=== PATIENT | female | born 1950 | race Caucasian/White ===

== ENCOUNTER → 2016-04-15 | Outpatient (CLI) | payer OTHER ==
--- NOTE | 2016-04-15 17:13 | DX ---
Chest, PA and lateral History: J 06.9, upper respiratory infection, cough, on biologic age in or rheumatoid arthritis. Findings: Compare October 2015, May 2012, and May 2011. The lungs are clear, and there are no pleural effusions. Heart size is normal. No masses are found. Chronic abnormalities of left shoulder are unchanged. Moderate thoracic scoliosis and obesity are unchanged. Impression: Negative for pneumonia.
== END ==
LOC: CIMAGING 16:33
PROVIDERS: ATTEND Internal Medicine
DX: R05 Cough (principal); M06.9 Rheumatoid arthritis, unspecified; Z79.899 Other long term (current) drug therapy
CPT/HCPCS: 71020-PO

== ENCOUNTER 2016-05-06 15:23 | Emergency (ER) | payer OTHER ==
[2016-05-06 16:13] VITALS: BP 159/80; PULSE 82; RESP 20; TEMP 97.7; O2SAT 97
--- NOTE | 2016-05-06 16:19 | UCPHY ---
H & P Time Seen by Provider: 05/06/16 16:19 Patient Type: New HPI/ROS: CHIEF COMPLAINT: right radial wrist pain HISTORY OF PRESENT ILLNESS: 65-year-old female history of rheumatoid arthritis , right-hand dominant, states that 1 week ago as she was having difficulty opening up a jaw are, she slammed down frustration and felt immediate pain in her right radial wrist and right 1st metacarpal. Pain is reproducible with range of motion. She notes soft tissue swelling as well. No paresthesia. PHYSICAL EXAM (Prior to examination, patient consented to physical exam, hands were washed and my usual and customary physical exam procedures followed) 1) GENERAL: Well-developed, well-nourished, alert and oriented. Appears to be in no acute distress. 2) HEAD: Normocephalic 3) HEENT: Pupils equal, round, reactive to light bilaterally. 4) LUNGS: Breathing comfortably. 5) MUSCULOSKELETAL: Soft compartments. Ecchymotic discoloration thenar eminence tender to palpation 1st metacarpal and snuffbox 6) SKIN: intact. Mild ecchymosis 7) VASCULAR: pulses and cap refill present are brisk 8) NEUROLOGIC: Radial, ulnar, median nerve function intact with no deficits appreciated on exam DIFFERENTIAL DIAGNOSIS: in no particular order including but not limited to fracture, sprain, compartment syndrome Xray of the right wrist interpreted by myself: no definitive acute osseous abnormality Procedure: Splint A Velcro thumb spica splint was applied by ER military technician. After application of the splint I returned and re-examined the patient. The splint was adequately immobilizing the joint and distal to the splint the patient's circulation and sensation were intact. Patient shows no signs of compartment syndrome. Was given orthopedic precautions. Smoking Status: Former smoker Constitutional: Initial Vital Signs Temperature (C) 36.5 C 05/06/16 16:07 Heart Rate 82 05/06/16 16:07 Respiratory Rate 20 05/06/16 16:07 Blood Pressure 159/80 H 05/06/16 16:07 O2 Sat (%) 97 05/06/16 16:07 O2 Delivery Mode Room Air Allergies/Adverse Reactions: codeine [Codeine] Allergy (Verified 05/06/16 16:14) nausea infliximab [From Remicade] Allergy (Verified 05/06/16 16:14) methotrexate [Methotrexate] Allergy (Verified 05/06/16 16:14) Penicillins Allergy (Verified 05/06/16 16:14) Home Medications: Medication Instructions Recorded LORazepam [Ativan (*)] 1 mg PO HS PRN 06/20/11 Omeprazole [Prilosec 20 mg] 40 mg PO DAILY@18 06/20/11 Triamterene/Hctz 37.5/25 0.5 tab PO DAILY 06/20/11 [Maxzide-25 (*)] Sumatriptan Succinate [Imitrex] 100 mg PO DAILY PRN 10/11/15 metFORMIN HCL [Glucophage 500 mg 500 mg PO BIDMEAL 10/11/15 (*)] Cimzia 05/06/16 oxyCODONE/APAP 5/325 [Percocet 1 tab PO Q6 #10 tab 05/06/16 5/325] MDM/Departure - MDM Procedures: Procedure: Splint A Velcro thumb spica splint was applied by ER military technician. After application of the splint I returned and re-examined the patient. The splint was adequately immobilizing the joint and distal to the splint the patient's circulation and sensation were intact. Patient shows no signs of compartment syndrome. Was given orthopedic precautions. ED Course/Re-evaluation: Re-evaluation with serial exams. She is neurovascularly intact. States that she is able tolerate Percocet without adverse effect/allergic affect. Recommend follow up with Hand surgery. Recommend splinting. Usual and customary orthopedic precautions and instructions provided. She feels comfortable being discharged - Depart Disposition: Home, Routine, Self-Care Clinical Impression: Right hand pain Condition: Good Instructions: Hand Sprain (ED) Additional Instructions: Return to the ER immediately if you experience discoloration, have worsening pain, numbness, tingling, or any other symptoms that concern you. If you received x-rays in the emergency department today, be advised, that ligamentous , tendon, muscular, and other non-bony injury cannot be fully ruled out. Try to keep your affected extremity elevated above the level of your chest, and keep cold packs on the affected area, for the next 48 hours. Prescriptions: oxyCODONE/APAP 325 [Percocet 325] 1 tab PO Q6 #10 tab - PQRS PQRS Measurement: n/a
--- NOTE | 2016-05-06 16:36 | DX ---
Right wrist series 4 views 1620 hours. History: Right wrist pain after punching an object one week ago. Findings: There is no evidence of fracture about the right wrist. Moderate to marked joint space narr owing is noted at the right first carpometacarpal joint with endplate sclerosis, hypertrophic osteoph ytes, and mild proximal subluxation. The remainder of the joint spaces appear to be normal. No fractu res are seen or periosteal thickening. Mild soft tissue swelling is suspected. Impression: 1. No acute osseous abnormality seen right wrist. 2. Degenerative changes first carpometacarpal joint.
== END 2016-05-06 16:55 | disposition home or self-care (01) ==
LOC: CED 15:23
DX: M25.841 Other specified joint disorders, right hand (principal); M25.741 Osteophyte, right hand; M06.9 Rheumatoid arthritis, unspecified
CPT/HCPCS: 73110; G0463; L3807; 99203-PO

== ENCOUNTER → 2016-06-17 | Outpatient (CLI) | payer OTHER | LOC: CIMAGING 16:20 | PROVIDERS: ATTEND Internal Medicine | DX: R05 Cough (principal) | CPT/HCPCS: 71020-PO ==

== ENCOUNTER 2016-06-20 18:53 | Emergency (ER) | payer OTHER ==
[2016-06-20 19:05] VITALS: RESP 18; TEMP 98
[2016-06-20] MEDS ORDERED: IPRATROPIUM/ALBUTEROL 3 ML DEYVIAL IH ONE (19:59)
--- NOTE | 2016-06-20 20:03 | UCPHY ---
H & P Patient Type: Established Chief Complaint Nursing Narrative: sent by Dr. Markham for further work up of SOB/ cough/put on acyclovir for cold sore Time Seen by Provider: 06/20/16 19:38 HPI/ROS: CHIEF COMPLAINT: Cough HISTORY OF PRESENT ILLNESS: The patient is a 65-year-old female with a history of rheumatoid arthritis on Cimzia who comes to the Urgent Care complaining of worsening cough and dyspnea with exertion. She is a patient of Dr. Stuart's and saw him on Friday of this week. At that time she had similar complaints. Her x -ray was negative. He started her on acyclovir for a cold sore. She held off her Cimzia injection this week. She has had a low-grade fever up to 100. She also states that she has had wheezing at night when she lies flat. Her cough is productive of yellow sputum. She denies chest pain. She denies nausea vomiting or GI symptoms. She called Dr. Stuart this afternoon who recommended she come in to get evaluated and repeat x-ray. She classifies her symptoms as moderate. She denies any history of respiratory or cardiac disease. REVIEW OF SYSTEMS: Constitutional: denies: chills, fever, recent illness, recent injury EENTM: denies: blurred vision, double vision, nose congestion Respiratory: See HPI Cardiac: denies: chest pain, irregular heart rate, lightheadedness, palpitations Gastrointestinal/Abdominal: denies: abdominal pain, diarrhea, nausea, vomiting, blood streaked stools Genitourinary: denies: dysuria, frequency, hematuria, pain Musculoskeletal: denies: joint pain, muscle pain Skin: denies: lesions, rash, jaundice, bruising Neurological: denies: headache, numbness, paresthesia, tingling, dizziness, weakness Hematologic/Lymphatic: denies: blood clots, easy bleeding, easy bruising Immunologic/allergic: denies: HIV/AIDS, transplant EXAM: GENERAL: Well-appearing, well-nourished and in no acute distress. HEAD: Atraumatic, normocephalic. EYES: Pupils equal round and reactive to light, extraocular movements intact, sclera anicteric, conjunctiva are normal. ENT: TMs normal, nares patent, oropharynx clear without exudates. Moist mucous membranes. NECK: Normal range of motion, supple without lymphadenopathy or JVD. LUNGS: Right lower lobe rhonchi HEART: Regular rate and rhythm without murmurs, rubs or gallops. ABDOMEN: Soft, nontender, normoactive bowel sounds. No guarding, no rebound. No masses appreciated. BACK: No CVA tenderness, no spinal tenderness, step-offs or deformities EXTREMITIES: Normal range of motion, no pitting or edema. No clubbing or cyanosis. NEUROLOGICAL: Cranial nerves II through XII grossly intact. Normal speech, normal gait. 5/5 strength, normal movement in all extremities, normal sensation PSYCH: Normal mood, normal affect. SKIN: Warm, dry, normal turgor, no visible rashes or lesions. Source: Patient Exam Limitations: No limitations - Personal History Current Tetanus Diphtheria and Acellular Pertussis (TDAP): Yes - Medical/Surgical History Hx Asthma: No Hx Chronic Respiratory Disease: No Hx Diabetes: No Hx Cardiac Disease: No Hx Renal Disease: No Hx Cirrhosis: No Hx Alcoholism: No Hx HIV/AIDS: No Hx Splenectomy or Spleen Trauma: No Other PMH: FM. Rheumatoid Arthritis. /DM 2 - Family History Significant Family History: No pertinent family hx - Social History Smoking Status: Former smoker Alcohol Use: Sober Drug Use: None Constitutional: Initial Vital Signs Temperature (C) 36.6 C 06/20/16 19:01 Heart Rate 81 06/20/16 19:01 Respiratory Rate 18 06/20/16 19:01 Blood Pressure 120/46 L 06/20/16 19:01 O2 Sat (%) 94 06/20/16 19:01 O2 Delivery Mode Room Air Allergies/Adverse Reactions: codeine [Codeine] Allergy (Verified 05/06/16 16:14) nausea infliximab [From Remicade] Allergy (Verified 05/06/16 16:14) methotrexate [Methotrexate] Allergy (Verified 05/06/16 16:14) Penicillins Allergy (Verified 05/06/16 16:14) Home Medications: Medication Instructions Recorded LORazepam [Ativan (*)] 1 mg PO HS PRN 06/20/11 Omeprazole [Prilosec 20 mg] 40 mg PO DAILY@18 06/20/11 Triamterene/Hctz 37.5/25 0.5 tab PO DAILY 06/20/11 [Maxzide-25 (*)] Sumatriptan Succinate [Imitrex] 100 mg PO DAILY PRN 10/11/15 metFORMIN HCL [Glucophage 500 mg 500 mg PO BIDMEAL 10/11/15 (*)] Cimzia 05/06/16 oxyCODONE/APAP 5/325 [Percocet 1 tab PO Q6 #10 tab 05/06/16 5/325] Fluconazole [Diflucan (*)] 150 mg PO ONCE #3 tab 06/20/16 Ondansetron Odt [Zofran Odt 4 mg 4 mg PO Q4 PRN #20 tab 06/20/16 (RX)] levOFLOXACIN [levAQUIN] 750 mg PO DAILY #10 tab 06/20/16 Medical Decision Making - Diagnostics EKG Interpretation: An EKG obtained and was read and documented in trace view. Please see trace view for full reading and report. Sinus rhythm, no QT prolongation Imaging: X-ray: chest x-ray was obtained. I viewed the images myself on the PACS system. My interpretation of the images is: Bronchitis. The radiologist interpretation is bronchitis. ED Course/Re-evaluation: 9:50 p.m. the patient is well appearing. She is saturating 96% on room air. She does have coarse breath sounds in the right lower lobe and bronchitis on x- ray. Her x-ray does not look worse than previous. I will start her on antibiotics based on her risk factors. She is very anxious about antibiotics orally because she states that they make her nauseous. We will premedicate her with Zofran. Patient did well with antibiotics. She also fell relief with the DuoNeb. She has been prescribed albuterol and will begin taking at home. She will follow up with Dr. Matt on Friday. Differential Diagnosis: Partial list of the Differential diagnosis considered include but were not limited to; bronchitis, pneumonia influenza and although unlikely based on the history and physical exam, I also considered sepsis, acute coronary disease, endocarditis. I discussed these differential diagnoses and the plan with the patient as well as the usual and expected course. The patient understands that the diagnosis is provisional and that in medicine we are not always correct and that further workup is often warranted. Usual and customary warnings were given. All of the patient's questions were answered. The patient was instructed to return to the emergency department should the symptoms at all worsen or return, otherwise to followup with the physician as we discussed. - Data Points Laboratory Results: Laboratory Results 06/20/16 21:15 06/20/16 21:15 06/20/16 06/20/16 06/20/16 21:15 21:15 21:15 WBC 7.28 10^3/uL 10^3/uL (3.80-9.50) RBC 5.19 10^6/uL 10^6/uL (4.18-5.33) Hgb 16.2 g/dL g/dL (12.6-16.3) Hct 47.8 % H % (38.0-47.0) MCV 92.1 fL fL (81.5-99.8) MCH 31.2 pg pg (27.9-34.1) MCHC 33.9 g/dL g/dL (32.4-36.7) RDW 13.1 % % (11.5-15.2) Plt Count 276 10^3/uL 10^3/uL (150-400) MPV 9.4 fL fL (8.7-11.7) Neut % (Auto) 44.5 % % (39.3-74.2) Lymph % (Auto) 43.4 % % (15.0-45.0) [place] % (Auto) 8.0 % % (4.5-13.0) Eos % (Auto) 3.4 % % (0.6-7.6) Baso % (Auto) 0.4 % % (0.3-1.7) Nucleat RBC Rel Count 0.0 % % (0.0-0.2) Absolute Neuts (auto) 3.24 10^3/uL 10^3/uL (1.70-6.50) Absolute Lymphs (auto) 3.16 10^3/uL H 10^3/uL (1.00-3.00) Absolute Monos (auto) 0.58 10^3/uL 10^3/uL (0.30-0.80) Absolute Eos (auto) 0.25 10^3/uL 10^3/uL (0.03-0.40) Absolute Basos (auto) 0.03 10^3/uL 10^3/uL (0.02-0.10) Absolute Nucleated RBC 0.00 10^3/uL 10^3/uL (0-0.01) Immature Gran % 0.3 % % (0.0-1.1) Immature Gran # 0.02 10^3/uL 10^3/uL (0.00-0.10) APTT 24.8 SEC SEC (23.0-38.0) VBG Lactic Acid Sodium 140 mEq/L mEq/L (134-144) Potassium 3.6 mEq/L mEq/L (3.5-5.2) Chloride 100 mEq/L mEq/L (97-110) Carbon Dioxide 24 mEq/l mEq/l (22-31) Anion Gap 16 mEq/L mEq/L (8-16) BUN 18 mg/dL mg/dL (7-23) Creatinine 1.0 mg/dL mg/dL (0.6-1.0) Estimated GFR 56 Glucose 183 mg/dL H mg/dL (70-100) Calcium 9.4 mg/dL mg/dL (8.5-10.4) Total Bilirubin 0.5 mg/dL mg/dL (0.1-1.4) Conjugated Bilirubin 0.4 mg/dL mg/dL (0.0-0.5) Unconjugated Bilirubin 0.1 mg/dL mg/dL (0.0-1.1) AST 22 IU/L IU/L (14-46) ALT 38 IU/L IU/L (9-52) Alkaline Phosphatase 74 IU/L IU/L (38-126) Total Protein 7.7 g/dL g/dL (6.3-8.2) Albumin 3.8 g/dL g/dL (3.5-5.0) 06/20/16 21:15 WBC RBC Hgb Hct MCV MCH MCHC RDW Plt Count MPV Neut % (Auto) Lymph % (Auto) [place] % (Auto) Eos % (Auto) Baso % (Auto) Nucleat RBC Rel Count Absolute Neuts (auto) Absolute Lymphs (auto) Absolute Monos (auto) Absolute Eos (auto) Absolute Basos (auto) Absolute Nucleated RBC Immature Gran % Immature Gran # APTT VBG Lactic Acid 2.2 mmol/L H mmol/L (0.7-2.1) Sodium Potassium Chloride Carbon Dioxide Anion Gap BUN Creatinine Estimated GFR Glucose Calcium Total Bilirubin Conjugated Bilirubin Unconjugated Bilirubin AST ALT Alkaline Phosphatase Total Protein Albumin Medications Given: Discontinued Medications Albuterol/Ipratropium (Duoneb) 3 ml IH EDNOW ONE Stop: 06/20/16 20:00 Last Admin: 06/20/16 20:47 Dose: 3 ml Levofloxacin (Levaquin) 750 mg PO EDNOW ONE PRN Reason: Protocol Stop: 06/20/16 20:58 Last Admin: 06/20/16 22:30 Dose: 750 mg Ondansetron HCl (Zofran) 4 mg IVP EDNOW ONE Stop: 06/20/16 21:59 Last Admin: 06/20/16 22:15 Dose: 4 mg Departure - Departure Disposition: Home, Routine, Self-Care Clinical Impression: Bronchitis Condition: Fair Instructions: Acute Bronchitis (ED) Referrals: Marc Matt MD [Primary Care Provider] - As per Instructions Prescriptions: Fluconazole [Diflucan (*)] 150 mg PO ONCE #3 tab levOFLOXACIN [levAQUIN] 750 mg PO DAILY #10 tab Ondansetron Odt [Zofran Odt 4 mg (RX)] 4 mg PO Q4 PRN #20 tab PRN Reason: Nausea & Vomiting - PQRS PQRS Measurement: 134: Depression screening and followup, PRIME MD-PHQ2 (12 years and older) Over the last 2 weeks, how often have you been bothered by any of the following problems? 1. Feeling down, depressed, or hopeless? 2. Little interest or pleasure in doing things? Patient answered no to both 1 and 2 130: Documentation of medications. Reviewed all patient medications, doses, route and frequency. 226: Do you smoke? No. 47: 65 and older: Advanced care planning. Patient designates surrogate decision maker as spouse . Patient has advanced directive. 51: 18 years old and older with diagnosis of COPD, spirometry performance. Spirometry not performed; equipment not available. 52: 18 years old and older with COPD and symptoms of COPD or FEV1<60% predicted prescribed a B Agonist. Not applicable
[2016-06-20 21:23] LABS: % IMMATURE GRANULYOCYTES 0.3 % (0.0-1.1); ABSOLUTE IMMATURE GRANULOCYTES 0.02 10^3/uL (0.00-0.10); ADD DIFF? NO; ADD MORPH? NO; ATYPICAL LYMPHOCYTE FLAG 40 (0-99); FRAGMENT RBC FLAG 0 (0-99); HEMATOCRIT 47.8 % (38.0-47.0); HEMOGLOBIN 16.2 g/dL (12.6-16.3); LEFT SHIFT FLG 0 (0-99); LIPEMIA HEMOLYSIS FLAG 90 (0-99); MEAN CELL HEMOGLOBIN 31.2 pg (27.9-34.1); MEAN CELL HEMOGLOBIN CONCENTR. 33.9 g/dL (32.4-36.7); MEAN CELL VOLUME 92.1 fL (81.5-99.8); MEAN PLATELET VOLUME 9.4 fL (8.7-11.7); PLATELET CLUMPS FLAG 0 (0-99); PLATELET COUNT 276 10^3/uL (150-400); RED BLOOD CELL COUNT 5.19 10^6/uL (4.18-5.33); RED CELL DISTRIBUTION WIDTH 13.1 % (11.5-15.2)
[2016-06-20 21:36] LABS: ADD SCAN? NO
[2016-06-20 21:51] LABS: ALBUMIN 3.8 g/dL (3.5-5.0); BILIRUBIN,TOTAL 0.5 mg/dL (0.1-1.4); BILIRUBIN-CONJUGATED 0.4 mg/dL (0.0-0.5); BILIRUBIN-UNCONJUGATED 0.1 mg/dL (0.0-1.1); CALCIUM 9.4 mg/dL (8.5-10.4); POTASSIUM 3.6 mEq/L (3.5-5.2); TOTAL PROTEIN 7.7 g/dL (6.3-8.2)
[2016-06-20] MEDS ORDERED: ONDANSETRON 4 MG/2 ML VIAL IVP ONE (21:58)
--- NOTE | 2016-06-20 22:23 | CPEKG ---
Heart Rate: 102 RR Interval: 588 P-R Interval: 144 QRSD Interval: 78 QT Interval: 368 QTC Interval: 480 P [place]: 39 QRS Frazee: -13 T Wave Fraz[place]: 10 EKG Severity - ABNORMAL ECG - EKG Impression: SINUS TACHYCARDIA EKG Impression: LVH WITH SECONDARY REPOLARIZATION ABNORMALITY Electronically Signed By: Tani Rodriguez 20-Jun-2016 22:32:30
[2016-06-20 22:50] VITALS: BP 160/90; PULSE 102; O2SAT 92
== END 2016-06-20 22:35 | disposition home or self-care (01) ==
LOC: CED 18:53
DX: J40 Bronchitis, not specified as acute or chronic (principal); M06.9 Rheumatoid arthritis, unspecified
CPT/HCPCS: 71020; 93005; 96374; G0463; J2405; 80048-PO; 80076-PO; 83605-PO; 85025-PO; 85730-PO; 93010-PO; 99214-PO

== ENCOUNTER 2017-03-26 15:26 | Emergency (ER) | payer OTHER ==
[2017-03-26] MEDS ORDERED: NS 1,000 ML IV ONE (15:52)
--- NOTE | 2017-03-26 15:55 | EDPHY ---
H & P Time Seen by Provider: 03/26/17 15:46 HPI/ROS: CHIEF COMPLAINT: High blood glucose HISTORY OF PRESENT ILLNESS: The patient is a 66-year-old female with a history of poorly controlled type 2 diabetes who received a steroid injection in her spine yesterday at [facility]. Since that time she has had elevated glucose. She checked in the middle the night last night and was 395. This afternoon it was over 400. She otherwise feels fine. She denies chest pain, shortness of breath, nausea vomiting or muscle cramps. She has not had any increased urination. No fevers. No headache. She called her primary care doctor Shaka's office who recommended she come to the ER. She takes metformin only. She was prescribed Januvia about a month ago however gave her abdominal pain so she stopped taking it. REVIEW OF SYSTEMS: Constitutional: denies: chills, fever, recent illness, recent injury EENTM: denies: blurred vision, double vision, nose congestion Respiratory: denies: cough, shortness of breath Cardiac: denies: chest pain, irregular heart rate, lightheadedness, palpitations Gastrointestinal/Abdominal: denies: abdominal pain, diarrhea, nausea, vomiting, blood streaked stools Genitourinary: denies: dysuria, frequency, hematuria, pain Musculoskeletal: denies: joint pain, muscle pain Skin: denies: lesions, rash, jaundice, bruising Neurological: denies: headache, numbness, paresthesia, tingling, dizziness, weakness Hematologic/Lymphatic: denies: blood clots, easy bleeding, easy bruising Immunologic/allergic: denies: HIV/AIDS, transplant EXAM: GENERAL: Well-appearing, overweight and in no acute distress. HEAD: Atraumatic, normocephalic. EYES: Pupils equal round and reactive to light, extraocular movements intact, sclera anicteric, conjunctiva are normal. ENT: TMs normal, nares patent, oropharynx clear without exudates. Moist mucous membranes. NECK: Normal range of motion, supple without lymphadenopathy or JVD. LUNGS: Breath sounds clear to auscultation bilaterally and equal. No wheezes rales or rhonchi. HEART: Regular rate and rhythm without murmurs, rubs or gallops. ABDOMEN: Soft, nontender, normoactive bowel sounds. No guarding, no rebound. No masses appreciated. BACK: No CVA tenderness, no spinal tenderness, step-offs or deformities EXTREMITIES: Normal range of motion, no pitting or edema. No clubbing or cyanosis. NEUROLOGICAL: Cranial nerves II through XII grossly intact. Normal speech, normal gait. 5/5 strength, normal movement in all extremities, normal sensation PSYCH: Normal mood, normal affect. SKIN: Warm, dry, normal turgor, no visible rashes or lesions. Source: Patient Exam Limitations: No limitations - Medical/Surgical History Hx Asthma: No Hx Chronic Respiratory Disease: No Hx Diabetes: No Hx Cardiac Disease: No Hx Renal Disease: No Hx Cirrhosis: No Hx Alcoholism: No Hx HIV/AIDS: No Hx Splenectomy or Spleen Trauma: No Other PMH: FM. Rheumatoid Arthritis. DM 2 - Family History Significant Family History: No pertinent family hx - Social History Smoking Status: Former smoker Alcohol Use: Sober Drug Use: None Constitutional: Initial Vital Signs Temperature (C) 37.0 C 03/26/17 15:46 Heart Rate 103 H 03/26/17 15:46 Respiratory Rate 18 03/26/17 15:46 Blood Pressure 141/78 H 03/26/17 15:46 O2 Sat (%) 93 03/26/17 15:46 O2 Delivery Mode Room Air Allergies/Adverse Reactions: codeine [Codeine] Allergy (Verified 03/26/17 15:36) nausea infliximab [From Remicade] Allergy (Verified 03/26/17 15:36) methotrexate [Methotrexate] Allergy (Verified 03/26/17 15:36) Penicillins Allergy (Verified 03/26/17 15:36) Home Medications: Medication Instructions Recorded LORazepam [Ativan (*)] 1 mg PO HS PRN 06/20/11 Omeprazole [Prilosec 20 mg] 40 mg PO DAILY@18 06/20/11 Triamterene/Hctz 37.5/25 0.5 tab PO DAILY 06/20/11 [Maxzide-25 (*)] Sumatriptan Succinate [Imitrex] 100 mg PO DAILY PRN 10/11/15 metFORMIN HCL [Glucophage 500 mg 500 mg PO BIDMEAL 10/11/15 (*)] Cimzia 05/06/16 oxyCODONE/APAP 5/325 [Percocet 1 tab PO Q6 #10 tab 05/06/16 5/325] Medical Decision Making ED Course/Re-evaluation: 4:10 p.m. I discussed the case with pharmacist. They are unsure the duration of the affect of the [place] on her blood sugar. I then discussed the case with Dr. Bhardwaj who performed the injection yesterday. He states that the affect usually last for about a day or 2 but he has seen at last up to a week. The patient also had mild erythema in face this morning which is also a known complication from the in injection however this resolved with Benadryl. 6:45 p.m. patient's chemistry in sugars have improved significantly with IV hydration and insulin administration. I discussed the case with Dr. Kira Hartmann. She recommends the patient check her insulin tonight and tomorrow and call their office tomorrow to discuss follow-up. They would like to get her back on Apruvia but the patient is resistant to this. Patient and are happy with this plan and declines further workup or testing at this time. Differential Diagnosis: Partial list of the Differential diagnosis considered include but were not limited to; hyperglycemia, medication reaction, electrolyte abnormality and although unlikely based on the history and physical exam, I also considered infection. I discussed these differential diagnoses and the plan with the patient as well as the usual and expected course. The patient understands that the diagnosis is provisional and that in medicine we are not always correct and that further workup is often warranted. Usual and customary warnings were given. All of the patient's questions were answered. The patient was instructed to return to the emergency department should the symptoms at all worsen or return, otherwise to followup with the physician as we discussed. - Data Points Laboratory Results: Laboratory Results 03/26/17 16:18 03/26/17 18:03 03/26/17 03/26/17 03/26/17 18:03 16:18 16:18 WBC 13.43 10^3/uL H 10^3/uL (3.80-9.50) RBC 4.84 10^6/uL 10^6/uL (4.18-5.33) Hgb 15.0 g/dL g/dL (12.6-16.3) Hct 45.1 % % (38.0-47.0) MCV 93.2 fL fL (81.5-99.8) MCH 31.0 pg pg (27.9-34.1) MCHC 33.3 g/dL g/dL (32.4-36.7) RDW 13.4 % % (11.5-15.2) Plt Count 291 10^3/uL 10^3/uL (150-400) MPV 9.8 fL fL (8.7-11.7) Neut % (Auto) 87.9 % H % (39.3-74.2) Lymph % (Auto) 7.4 % L % (15.0-45.0) [place] % (Auto) 4.2 % L % (4.5-13.0) Eos % (Auto) 0.0 % L % (0.6-7.6) Baso % (Auto) 0.1 % L % (0.3-1.7) Nucleat RBC Rel Count 0.0 % % (0.0-0.2) Absolute Neuts (auto) 11.80 10^3/uL H 10^3/uL (1.70-6.50) Absolute Lymphs (auto) 1.00 10^3/uL 10^3/uL (1.00-3.00) Absolute Monos (auto) 0.56 10^3/uL 10^3/uL (0.30-0.80) Absolute Eos (auto) 0.00 10^3/uL L 10^3/uL (0.03-0.40) Absolute Basos (auto) 0.01 10^3/uL L 10^3/uL (0.02-0.10) Absolute Nucleated RBC 0.00 10^3/uL 10^3/uL (0-0.01) Immature Gran % 0.4 % % (0.0-1.1) Immature Gran # 0.06 10^3/uL 10^3/uL (0.00-0.10) Sodium 140 mEq/L mEq/L 139 mEq/L mEq/L (134-144) (134-144) Potassium 3.8 mEq/L mEq/L 4.2 mEq/L mEq/L (3.5-5.2) (3.5-5.2) Chloride 103 mEq/L mEq/L 99 mEq/L mEq/L (97-110) (97-110) Carbon Dioxide 21 mEq/l L mEq/l 20 mEq/l L mEq/l (22-31) (22-31) Anion Gap 16 mEq/L mEq/L 20 mEq/L H mEq/L (8-16) (8-16) BUN 22 mg/dL mg/dL 23 mg/dL mg/dL (7-23) (7-23) Creatinine 0.8 mg/dL mg/dL 0.9 mg/dL mg/dL (0.6-1.0) (0.6-1.0) Estimated GFR > 60 > 60 Glucose 213 mg/dL H mg/dL 331 mg/dL H mg/dL (70-100) (70-100) Calcium 8.9 mg/dL mg/dL 9.7 mg/dL mg/dL (8.5-10.4) (8.5-10.4) Phosphorus 2.9 mg/dL mg/dL (2.5-4.5) Magnesium 1.9 mg/dL mg/dL (1.6-2.3) Medications Given: Discontinued Medications Sodium Chloride (Ns) 1,000 mls @ 0 mls/hr IV ONCE ONE; Wide Open PRN Reason: Protocol Stop: 03/26/17 15:53 Last Admin: 03/26/17 16:17 Dose: 1,000 mls Insulin Human Regular (Humulin R) 5 unit IVP EDNOW ONE Stop: 03/26/17 16:53 Last Admin: 03/26/17 17:05 Dose: Not Given Insulin Human Regular (Humulin R) 10 unit IVP EDNOW ONE Stop: 03/26/17 16:54 Last Admin: 03/26/17 17:01 Dose: 10 units Departure - Departure Disposition: Home, Routine, Self-Care Clinical Impression: Hyperglycemia Condition: Fair Instructions: Diabetic Hyperglycemia (ED) Referrals: Marc Matt MD [Primary Care Provider] - 1 day without fail
[2017-03-26 16:00] VITALS: TEMP 98.6
[2017-03-26 16:28] LABS: % IMMATURE GRANULYOCYTES 0.4 % (0.0-1.1); ABSOLUTE IMMATURE GRANULOCYTES 0.06 10^3/uL (0.00-0.10); ADD DIFF? NO; ADD MORPH? NO; ADD SCAN? NO; ATYPICAL LYMPHOCYTE FLAG 0 (0-99); FRAGMENT RBC FLAG 0 (0-99); HEMATOCRIT 45.1 % (38.0-47.0); LEFT SHIFT FLG 0 (0-99); LIPEMIA HEMOLYSIS FLAG 80 (0-99); MEAN CELL HEMOGLOBIN CONCENTR. 33.3 g/dL (32.4-36.7); MEAN CELL VOLUME 93.2 fL (81.5-99.8); MEAN PLATELET VOLUME 9.8 fL (8.7-11.7); PLATELET CLUMPS FLAG 0 (0-99); PLATELET COUNT 291 10^3/uL (150-400); RED BLOOD CELL COUNT 4.84 10^6/uL (4.18-5.33); RED CELL DISTRIBUTION WIDTH 13.4 % (11.5-15.2)
[2017-03-26 16:44] LABS: ANION GAP 20 mEq/L (8-16); CALCIUM 9.7 mg/dL (8.5-10.4); CARBON DIOXIDE 20 mEq/l (22-31); CHLORIDE 99 mEq/L (97-110); CREATININE 0.9 mg/dL (0.6-1.0); GLOMERULAR FILTRATION RATE > 60; GLUCOSE 331 mg/dL (70-100); MAGNESIUM 1.9 mg/dL (1.6-2.3); POTASSIUM 4.2 mEq/L (3.5-5.2); SODIUM 139 mEq/L (134-144)
[2017-03-26] MEDS ORDERED: INSULIN REGULAR HUMAN 100 UNIT/ML IVP ONE ×2 (16:52→16:53)
[2017-03-26 17:10] VITALS: RESP 16
[2017-03-26 18:26] LABS: ANION GAP 16 mEq/L (8-16); CALCIUM 8.9 mg/dL (8.5-10.4); CARBON DIOXIDE 21 mEq/l (22-31); CHLORIDE 103 mEq/L (97-110); CREATININE 0.8 mg/dL (0.6-1.0); GLOMERULAR FILTRATION RATE > 60; GLUCOSE 213 mg/dL (70-100); POTASSIUM 3.8 mEq/L (3.5-5.2); SODIUM 140 mEq/L (134-144)
[2017-03-26 18:56] VITALS: BP 137/58; PULSE 88; O2SAT 96
== END 2017-03-26 18:54 | disposition home or self-care (01) ==
LOC: CED 15:26
DX: E11.65 Type 2 diabetes mellitus with hyperglycemia (principal); E86.9 Volume depletion, unspecified; Z79.84 Long term (current) use of oral hypoglycemic drugs; Z87.891 Personal history of nicotine dependence
CPT/HCPCS: 80048-PO; 83735-PO; 84100-PO; 85025-PO; 96374; J1815

== ENCOUNTER 2017-04-09 15:25 | Emergency (ER) | payer OTHER ==
[2017-04-09 15:53] VITALS: RESP 20; TEMP 97.7
[2017-04-09] MEDS ORDERED: HYDROmorphONE/DILAUDID 1 MG/ML INJ IVP ONE (15:57)
[2017-04-09] MEDS ORDERED: NS 1,000 ML IV ONE (15:57)
--- NOTE | 2017-04-09 15:59 | EDPHY ---
H & P Stated Complaint: abdominal pain Time Seen by Provider: 04/09/17 15:47 HPI/ROS: CHIEF COMPLAINT: Epigastric pain HISTORY OF PRESENT ILLNESS: The patient is a 66-year-old obese diabetic female who comes to the emergency department complaining of epigastric pain for the last 4 days. She states that she stopped taking her metformin 4 days ago because of the pain but her symptoms have not improved. She denies heartburn. She has a history of appendectomy and hysterectomy as well as diverticulitis. She denies having any lower abdominal pain however and states that it is in her epigastric region and radiates around her left side. She states that it is worsened by movement or twisting. She states that when she exerts herself she becomes easily fatigued. She denies shortness of breath or fevers. She denies vomiting or diarrhea. No urinary or vaginal symptoms. She states that she had a stress test 1 year ago that was negative. She also has a history biliary sludge seen on HIDA scan 5 years ago. REVIEW OF SYSTEMS: Constitutional: denies: chills, fever, recent illness, recent injury EENTM: denies: blurred vision, double vision, nose congestion Respiratory: denies: cough, shortness of breath Cardiac: denies: chest pain, irregular heart rate, lightheadedness, palpitations Gastrointestinal/Abdominal: See HPI Genitourinary: denies: dysuria, frequency, hematuria, pain Musculoskeletal: denies: joint pain, muscle pain Skin: denies: lesions, rash, jaundice, bruising Neurological: denies: headache, numbness, paresthesia, tingling, dizziness, weakness Hematologic/Lymphatic: denies: blood clots, easy bleeding, easy bruising Immunologic/allergic: denies: HIV/AIDS, transplant EXAM: GENERAL: Well-appearing, well-nourished and in no acute distress. HEAD: Atraumatic, normocephalic. EYES: Pupils equal round and reactive to light, extraocular movements intact, sclera anicteric, conjunctiva are normal. ENT: TMs normal, nares patent, oropharynx clear without exudates. Moist mucous membranes. NECK: Normal range of motion, supple without lymphadenopathy or JVD. LUNGS: Breath sounds clear to auscultation bilaterally and equal. No wheezes rales or rhonchi. HEART: Regular rate and rhythm without murmurs, rubs or gallops. ABDOMEN: Soft, nontender, normoactive bowel sounds. No guarding, no rebound. No masses appreciated. BACK: No CVA tenderness, no spinal tenderness, step-offs or deformities EXTREMITIES: Normal range of motion, no pitting or edema. No clubbing or cyanosis. NEUROLOGICAL: Cranial nerves II through XII grossly intact. Normal speech, normal gait. 5/5 strength, normal movement in all extremities, normal sensation PSYCH: Normal mood, normal affect. SKIN: Warm, dry, normal turgor, no visible rashes or lesions. Source: Patient Exam Limitations: No limitations - Personal History Current Tetanus/Diphtheria Vaccine: Unsure Current Tetanus Diphtheria and Acellular Pertussis (TDAP): Unsure - Medical/Surgical History Hx Asthma: No Hx Chronic Respiratory Disease: No Hx Diabetes: No Hx Cardiac Disease: No Hx Renal Disease: No Hx Cirrhosis: No Hx Alcoholism: No Hx HIV/AIDS: No Hx Splenectomy or Spleen Trauma: No Other PMH: FM. Rheumatoid Arthritis. DM 2. Appendectomy, hysterectomy, diverticulitis, peptic ulcer disease - Family History Significant Family History: No pertinent family hx - Social History Smoking Status: Former smoker Alcohol Use: Sober Constitutional: Initial Vital Signs Temperature (C) 36.5 C 04/09/17 15:48 Heart Rate 98 04/09/17 15:48 Respiratory Rate 20 04/09/17 15:48 Blood Pressure 145/110 H 04/09/17 15:48 O2 Sat (%) 94 04/09/17 15:48 O2 Delivery Mode Room Air O2 (L/minute) 2 Allergies/Adverse Reactions: codeine [Codeine] Allergy (Verified 04/09/17 15:47) nausea infliximab [From Remicade] Allergy (Verified 04/09/17 15:47) methotrexate [Methotrexate] Allergy (Verified 04/09/17 15:47) Penicillins Allergy (Verified 04/09/17 15:47) Home Medications: Medication Instructions Recorded LORazepam [Ativan (*)] 1 mg PO HS PRN 06/20/11 Omeprazole [Prilosec 20 mg] 40 mg PO DAILY@18 06/20/11 Triamterene/Hctz 37.5/25 0.5 tab PO DAILY 06/20/11 [Maxzide-25 (*)] Sumatriptan Succinate [Imitrex] 100 mg PO DAILY PRN 10/11/15 metFORMIN HCL [Glucophage 500 mg 500 mg PO BIDMEAL 10/11/15 (*)] Cimzia 05/06/16 oxyCODONE/APAP 5/325 [Percocet 1 tab PO Q6 #10 tab 05/06/16 5/325] Medical Decision Making - Diagnostics EKG Interpretation: An EKG obtained and was read and documented in trace view. Please see trace view for full reading and report. Sinus rhythm, no acute ischemic changes, unchanged from previous Imaging: Discussed imaging studies w/ order caller Radiologist Procedures: 18 gauge IV placement with ultrasound guidance completed by me. Patient tolerated procedure well. Blood withdrawn. ED Course/Re-evaluation: 5:20 p.m. the patient's ultrasound is reassuring. We have had some difficulty getting lab work and starting an IV. The patient has to stop after a few attempts because she was having anxiety attack. She then went to ultrasound and afterwards wanted to take a dose of her home supply of Ativan that she is prescribed for anxiety before he attempt further IVs. She has now been here for 2 hr and we are still working on obtaining blood work. 6:10 p.m. the patient continues to be anxious. She has had 6 IV attempts. I placed a 18 gauge IJ IV not central line. With ultrasound guidance. 7:00 p.m. the patient's lab work is reassuring. Her troponin is negative in the face of 3-4 days worth of symptoms. Her repeat abdominal exams have been benign. At this point we discussed options which include a CT scan and further observation the versus discharged to follow up with her doctor tomorrow. The patient would prefer to be discharged. She already has an appointment to follow up with her doctor tomorrow. We discussed indications for returning if her symptoms worsen. She is happy with this and declines further workup or testing. She thinks that her stomach upset may be caused by the metformin although she has not taken it for the last 3 days. Her has been injecting her with Lantus.. Differential Diagnosis: Partial list of the Differential diagnosis considered include but were not limited to; biliary disease, peptic ulcer disease, pancreatitis, acute coronary disease and although unlikely based on the history and physical exam, I also considered the obstruction, diverticulitis, ischemia, volvulus, pneumothorax, PE, pneumonia. I discussed these differential diagnoses and the plan with the patient as well as the usual and expected course. The patient understands that the diagnosis is provisional and that in medicine we are not always correct and that further workup is often warranted. Usual and customary warnings were given. All of the patient's questions were answered. The patient was instructed to return to the emergency department should the symptoms at all worsen or return, otherwise to followup with the physician as we discussed. - Data Points Laboratory Results: Laboratory Results 04/09/17 18:14 04/09/17 18:14 Medications Given: Discontinued Medications Hydromorphone HCl (Dilaudid) 0.5 mg IVP EDNOW ONE Stop: 04/09/17 15:58 Last Admin: 04/09/17 18:31 Dose: 0.5 mg Sodium Chloride (Ns) 1,000 mls @ 0 mls/hr IV EDNOW ONE; Wide Open PRN Reason: Protocol Stop: 04/09/17 15:58 Last Admin: 04/09/17 18:29 Dose: 1,000 mls Departure - Departure Disposition: Home, Routine, Self-Care Clinical Impression: Abdominal pain Qualifiers: Abdominal location: epigastric Qualified Code(s): R10.13 - Epigastric pain Condition: Fair Instructions: Epigastric Pain (ED) Referrals: Marc Matt MD [Primary Care Provider] - 1 day without fail
--- NOTE | 2017-04-09 16:07 | CPEKG ---
Heart Rate: 91 RR Interval: 659 P-R Interval: 148 QRSD Interval: 74 QT Interval: 368 QTC Interval: 453 P [place]: 45 QRS [place]: -11 T Wave [place]: 9 EKG Severity - BORDERLINE ECG - EKG Impression: SINUS RHYTHM EKG Impression: Unchanged from previous Electronically Signed By: Tani Rodriguez 09-Apr-2017 16:13:13
[2017-04-09 18:22] LABS: PLATELET COUNT 226 10^3/uL (150-400)
[2017-04-09 18:34] LABS: INR 1.01 (0.83-1.16); PROTIME(PATIENT) 13.2 SEC (12.0-15.0)
[2017-04-09 19:10] VITALS: O2SAT 90
[2017-04-09 19:47] VITALS: BP 112/74; PULSE 90
== END 2017-04-09 19:47 | disposition home or self-care (01) ==
LOC: CED 15:25
DX: R10.13 Epigastric pain (principal); E86.9 Volume depletion, unspecified; E11.9 Type 2 diabetes mellitus without complications; Z79.84 Long term (current) use of oral hypoglycemic drugs; Z87.891 Personal history of nicotine dependence; Z90.49 Acquired absence of other specified parts of digestive tract; Z90.710 Acquired absence of both cervix and uterus
CPT/HCPCS: 76705; 93005; 96361; 96374; 99285; J1170; 80048-PO; 80076-PO; 81003-PO; 81015-PO; 83690-PO; 84484-PO; 85025-PO; 85610-PO; 85730-PO

== ENCOUNTER → 2017-04-17 | Outpatient (CLI) | payer OTHER | LOC: FLAB 12:53 | PROVIDERS: ATTEND Internal Medicine | DX: R10.11 Right upper quadrant pain (principal) | CPT/HCPCS: 78227; A9537 ==

== ENCOUNTER 2017-04-23 13:35 | Emergency (ER) | payer OTHER ==
[2017-04-23 13:51] VITALS: TEMP 98.1
--- NOTE | 2017-04-23 14:10 | CPEKG ---
Heart Rate: 79 RR Interval: 759 P-R Interval: 160 QRSD Interval: 80 QT Interval: 400 QTC Interval: 459 P [place]: 39 QRS [place]: -6 T Wave [place]: 24 EKG Severity - BORDERLINE ECG - EKG Impression: SINUS RHYTHM EKG Impression: BORDERLINE T ABNORMALITIES, ANTERIOR LEADS EKG Impression: Similar to previous Electronically Signed By: Tani Rodriguez 23-Apr-2017 15:02:36
[2017-04-23 14:35] LABS: PLATELET COUNT 235 10^3/uL (150-400)
--- NOTE | 2017-04-23 15:13 | EDPHY ---
H & P Stated Complaint: Epigastric pain Time Seen by Provider: 04/23/17 14:59 HPI/ROS: CHIEF COMPLAINT: Epigastric pain continued HISTORY OF PRESENT ILLNESS: The patient is a 66-year-old female who is been complaining of epigastric pain for the last 3 weeks. She has seen her primary doctor as well as me in the emergency department on April 09. At that time she had a negative ultrasound and negative troponin and EKG. She followed up with her doctor to have a HIDA scan which showed sludge. She states that she does get frequent reflux and takes omeprazole. Her primary doctor pain recommended that she get an upper endoscopy which they are trying to schedule. He also however recommended that she come to the ER for further cardiac workup. She denies shortness of breath, no recent travel or leg swelling. REVIEW OF SYSTEMS: Constitutional: denies: chills, fever, recent illness, recent injury EENTM: denies: blurred vision, double vision, nose congestion Respiratory: denies: cough, shortness of breath Cardiac: denies: chest pain, irregular heart rate, lightheadedness, palpitations Gastrointestinal/Abdominal: denies: abdominal pain, diarrhea, nausea, vomiting, blood streaked stools Genitourinary: denies: dysuria, frequency, hematuria, pain Musculoskeletal: denies: joint pain, muscle pain Skin: denies: lesions, rash, jaundice, bruising Neurological: denies: headache, numbness, paresthesia, tingling, dizziness, weakness Hematologic/Lymphatic: denies: blood clots, easy bleeding, easy bruising Immunologic/allergic: denies: HIV/AIDS, transplant EXAM: GENERAL: Obese, no distress HEAD: Atraumatic, normocephalic. EYES: Pupils equal round and reactive to light, extraocular movements intact, sclera anicteric, conjunctiva are normal. ENT: TMs normal, nares patent, oropharynx clear without exudates. Moist mucous membranes. NECK: Normal range of motion, supple without lymphadenopathy or JVD. LUNGS: Breath sounds clear to auscultation bilaterally and equal. No wheezes rales or rhonchi. HEART: Regular rate and rhythm without murmurs, rubs or gallops. ABDOMEN: Epigastric pain, no tenderness Soft, nontender, normoactive bowel sounds. No guarding, no rebound. No masses appreciated. BACK: No CVA tenderness, no spinal tenderness, step-offs or deformities EXTREMITIES: Normal range of motion, no pitting or edema. No clubbing or cyanosis. NEUROLOGICAL: Cranial nerves II through XII grossly intact. Normal speech, normal gait. 5/5 strength, normal movement in all extremities, normal sensation PSYCH: Normal mood, normal affect. SKIN: Warm, dry, normal turgor, no visible rashes or lesions. 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 Rheumatoid Arthritis. DM 2. Appendectomy, hysterectomy, diverticulitis, peptic ulcer disease - Family History Significant Family History: No pertinent family hx - Social History Smoking Status: Former smoker Alcohol Use: Sober Drug Use: None Constitutional: Initial Vital Signs Temperature (C) 36.7 C 04/23/17 13:46 Heart Rate 85 04/23/17 13:46 Respiratory Rate 20 04/23/17 13:46 Blood Pressure 154/52 H 04/23/17 13:46 O2 Sat (%) 95 04/23/17 13:46 O2 Delivery Mode Room Air Allergies/Adverse Reactions: codeine [Codeine] Allergy (Verified 04/09/17 15:47) nausea infliximab [From Remicade] Allergy (Verified 04/09/17 15:47) methotrexate [Methotrexate] Allergy (Verified 04/09/17 15:47) Penicillins Allergy (Verified 04/09/17 15:47) Home Medications: Medication Instructions Recorded LORazepam [Ativan (*)] 1 mg PO HS PRN 06/20/11 Omeprazole [Prilosec 20 mg] 40 mg PO DAILY@18 06/20/11 Triamterene/Hctz 37.5/25 0.5 tab PO DAILY 06/20/11 [Maxzide-25 (*)] Sumatriptan Succinate [Imitrex] 100 mg PO DAILY PRN 10/11/15 Cimzia 05/06/16 Insulin Pen Needle 04/23/17 Medical Decision Making - Diagnostics EKG Interpretation: An EKG obtained and was read and documented in trace view. Please see trace view for full reading and report. Sinus rhythm, no acute ischemia ED Course/Re-evaluation: The patient's troponin is again negative which is reassuring after several weeks of symptoms and negative troponin on the 3rd as well. It sounds as though the patient was sent here for stress testing. We discussed that we do not do this from the ER. We did discuss admission and stress testing tomorrow but the patient would prefer not to stay in the hospital. I will add on a D- dimer and page Dr. Khan. 3:50 p.m. I discussed the case with Dr. Koch who is on-call for Dr. Matt. He will have the patient follow up with the group h[facility] for stress testing. I will also refer her to 1 of our h[facility]. Patient and understand agree with this pain. They continue to decline admission. Differential Diagnosis: Partial list of the Differential diagnosis considered include but were not limited to; GERD, peptic ulcer disease, acute coronary disease, anxiety and although unlikely based on the history and physical exam, I also considered PE, dissection, pneumothorax. I discussed these differential diagnoses and the plan with the patient as well as the usual and expected course. The patient understands that the diagnosis is provisional and that in medicine we are not always correct and that further workup is often warranted. Usual and customary warnings were given. All of the patient's questions were answered. The patient was instructed to return to the emergency department should the symptoms at all worsen or return, otherwise to followup with the physician as we discussed. - Data Points Laboratory Results: Laboratory Results 04/23/17 14:26 04/23/17 14:26 04/23/17 04/23/17 04/23/17 14:26 14:26 14:26 WBC 6.17 10^3/uL 10^3/uL (3.80-9.50) RBC 4.80 10^6/uL 10^6/uL (4.18-5.33) Hgb 15.5 g/dL g/dL (12.6-16.3) Hct 45.8 % % (38.0-47.0) MCV 95.4 fL fL (81.5-99.8) MCH 32.3 pg pg (27.9-34.1) MCHC 33.8 g/dL g/dL (32.4-36.7) RDW 13.1 % % (11.5-15.2) Plt Count 235 10^3/uL 10^3/uL (150-400) MPV 9.5 fL fL (8.7-11.7) Neut % (Auto) 60.0 % % (39.3-74.2) Lymph % (Auto) 27.6 % % (15.0-45.0) Mcleod % (Auto) 9.9 % % (4.5-13.0) Eos % (Auto) 1.9 % % (0.6-7.6) Baso % (Auto) 0.3 % % (0.3-1.7) Nucleat RBC Rel Count 0.0 % % (0.0-0.2) Absolute Neuts (auto) 3.70 10^3/uL 10^3/uL (1.70-6.50) Absolute Lymphs (auto) 1.70 10^3/uL 10^3/uL (1.00-3.00) Absolute Monos (auto) 0.61 10^3/uL 10^3/uL (0.30-0.80) Absolute Eos (auto) 0.12 10^3/uL 10^3/uL (0.03-0.40) Absolute Basos (auto) 0.02 10^3/uL 10^3/uL (0.02-0.10) Absolute Nucleated RBC 0.00 10^3/uL 10^3/uL (0-0.01) Immature Gran % 0.3 % % (0.0-1.1) Immature Gran # 0.02 10^3/uL 10^3/uL (0.00-0.10) D-Dimer 0.35 ug/mLFEU ug/mLFEU (0.00-0.50) Sodium 138 mEq/L mEq/L (135-145) Potassium 4.2 mEq/L mEq/L (3.5-5.2) Chloride 103 mEq/L mEq/L (97-110) Carbon Dioxide 23 mEq/l mEq/l (22-31) Anion Gap 12 mEq/L mEq/L (8-16) BUN 18 mg/dL mg/dL (7-23) Creatinine 0.9 mg/dL mg/dL (0.6-1.0) Estimated GFR > 60 Glucose 260 mg/dL H mg/dL (70-100) Calcium 9.0 mg/dL mg/dL (8.5-10.4) Total Bilirubin 0.3 mg/dL mg/dL (0.1-1.4) Conjugated Bilirubin 0.2 mg/dL mg/dL (0.0-0.5) Unconjugated Bilirubin 0.1 mg/dL mg/dL (0.0-1.1) AST 26 IU/L IU/L (14-46) ALT 40 IU/L IU/L (9-52) Alkaline Phosphatase 58 IU/L IU/L (38-126) Troponin I < 0.012 ng/mL ng/mL (0.000-0.034) Total Protein 6.6 g/dL g/dL (6.3-8.2) Albumin 3.7 g/dL g/dL (3.5-5.0) Lipase 74 IU/L IU/L (23-300) Departure - Departure Disposition: Home, Routine, Self-Care Clinical Impression: Epigastric abdominal pain Condition: Fair Instructions: Epigastric Pain (ED) Additional Instructions: Follow up with Dr. Matt, return for worsening pain or difficulty breathing. Referrals: Marc Matt MD [Primary Care Provider] - As per Instructions Adrián Costa MD [Medical Doctor] - 1-2 days without fail
[2017-04-23 15:19] VITALS: BP 146/80; PULSE 81; RESP 17; O2SAT 94
== END 2017-04-23 16:15 | disposition home or self-care (01) ==
DX: R10.13 Epigastric pain (principal); E11.9 Type 2 diabetes mellitus without complications; Z79.4 Long term (current) use of insulin; Z87.891 Personal history of nicotine dependence; Z90.49 Acquired absence of other specified parts of digestive tract; Z90.710 Acquired absence of both cervix and uterus

== ENCOUNTER → 2017-04-28 | Outpatient (CLI) | payer OTHER | LOC: CIMAGING 16:11 | PROVIDERS: ATTEND Internal Medicine | DX: M19.071 Primary osteoarthritis, right ankle and foot (principal) | CPT/HCPCS: 73620-PO ==

== ENCOUNTER → 2017-05-07 | Outpatient (CLI) | payer OTHER | LOC: BHFA 09:00 | PROVIDERS: ATTEND Internal Medicine Cardiovascular Disease | DX: R07.9 Chest pain, unspecified (principal) | CPT/HCPCS: 78452; 93017; A9500; J2785 ==

== ENCOUNTER 2017-07-09 16:38 | Emergency (ER) | payer OTHER ==
--- NOTE | 2017-07-09 16:39 | EDPHY ---
H & P Time Seen by Provider: 07/09/17 16:39 HPI/ROS: HPI CHIEF COMPLAINT: Mechanical trip and fall, right knee pain, right shoulder pain , hand abrasion HISTORY OF PRESENT ILLNESS: Patient very pleasant 67-year-old female she has a history of fibromyalgia, diabetes, presents emergency room after she had a mechanical trip and fall approximately an hour ago. She tripped by missing a step. This caused her to fall on her right knee and right shoulder she complains of right knee pain and right shoulder pain. She denies head strike. She denies chest pain or shortness of breath denies syncope, denies headache or neck pain. Main complaint right knee pain and right shoulder pain. Patient reports her tetanus shot is not up-to-date. Past Medical History: Fibromyalgia, diabetes, peptic ulcer disease Past Surgical History: Appendectomy Social History: Denies drugs alcohol tobacco. Family History: Noncontributory ROS REVIEW OF SYSTEMS: A comprehensive 10 point review of systems is otherwise negative aside from elements mentioned in the history of present illness. Exam Constitutional appears well nontoxic no acute distress, triage nursing summary reviewed, vital signs reviewed, awake/alert. Eyes normal conjunctivae and sclera, EOMI, PERRLA. HENT normal inspection, atraumatic, moist mucus membranes, no epistaxis, neck supple/ no meningismus, no raccoon eyes. Respiratory clear to auscultation bilaterally, normal breath sounds, no respiratory distress, no wheezing. Cardiovascular rate normal, regular rhythm, no murmur, no edema, distal pulses normal. Gastrointestinal soft, non-tender, no rebound, no guarding, normal bowel sounds, no distension, no pulsatile mass. Genitourinary no CVA tenderness. Musculoskeletal right lower extremity: Distally neurovascular intact, good distal pulse, good cap refill, full range of motion, swelling noted to the lateral right knee. And tenderness to palpation over the right lateral knee joint, full range of motion, no significant ecchymosis. Additionally right shoulder: Axillary nerve intact, good head of business development strength, full range of motion, tender palpation over the lateral right shoulder. no midline vertebral tenderness, full range of motion, no calf swelling, no tenderness of extremities , no meningismus, good pulses, neurovascularly intact. Skin abrasion over the left palm. Otherwise no laceration. Neurologic awake, alert and oriented x 3, AAOx3, moves all 4 extremities equally, motor intact, sensory intact, CN II-XII intact, normal cerebellar, normal vision, normal speech. Psychiatric normal mood/affect. Heme/Lymph/Immune no lymphadenopathy. Differential Diagnosis: Includes but is not limited to in a particular order mechanical trip and fall, multiple contusions, right shoulder strain, right shoulder sprain, right shoulder fracture, knee contusion, soft tissue injury, knee sprain, fracture of the knee Medical Decision Making: Plan for this patient Tylenol 1 g for pain control, update tetanus shot, x-ray right knee, x-ray right shoulder and re-evaluate. Re-evaluation: X-ray of the right shoulder and knee reviewed. No acute traumatic injury no fracture. Arthritic changes appreciated. Updated patient about her x-ray findings she is resting comfortably. Feels better after Tylenol. Recommend anti-inflammatory pain medicine, rest, ice packs as needed, follow up with her primary care doctor as needed as well. Return precautions discussed. 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 Rheumatoid Arthritis. DM 2. Appendectomy, hysterectomy, diverticulitis, peptic ulcer disease - Social History Smoking Status: Former smoker Constitutional: Initial Vital Signs Temperature (C) 36.5 C 07/09/17 17:03 Heart Rate 87 07/09/17 17:03 Respiratory Rate 20 07/09/17 17:03 Blood Pressure 141/86 H 07/09/17 17:03 O2 Sat (%) 94 07/09/17 17:03 O2 Delivery Mode Room Air Allergies/Adverse Reactions: codeine [Codeine] Allergy (Verified 07/09/17 17:00) nausea infliximab [From Remicade] Allergy (Verified 07/09/17 17:00) methotrexate [Methotrexate] Allergy (Verified 07/09/17 17:00) Penicillins Allergy (Verified 07/09/17 17:00) Home Medications: Medication Instructions Recorded LORazepam [Ativan (*)] 1 mg PO HS PRN 06/20/11 Omeprazole [Prilosec 20 mg] 40 mg PO DAILY@18 06/20/11 Triamterene/Hctz 37.5/25 0.5 tab PO DAILY 06/20/11 [Maxzide-25 (*)] Sumatriptan Succinate [Imitrex] 100 mg PO DAILY PRN 10/11/15 Cimzia 05/06/16 Insulin Pen Needle 04/23/17 Medical Decision Making - Diagnostics Imaging Results: Imaging Impressions Knee X-Ray 07/09/17 16:51 Impression: 1. There is no acute fracture identified. 2. 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 3. Features suggestive of a chronic rotator cuff tear with pronounced narrowing of the acromiohumeral distance. Right Knee (3 Views, at 4:56 PM): There is persistent severe patellofemoral joint space narrowing, and mild medial femoral-tibial compartment narrowing. There are periarticular degenerative spurs associated with the distal femur and the proximal tibia, as well as the posterior patella. There is a tiny suprapatellar joint effusion present. The bones are demineralized, however there is no acute fracture or dislocation. There is degenerative pinnacling of the tibial spines. There is no loose osteochondral body. There is a normal- variant fabella seen posterolaterally. Impression: Degenerative osteoarthritic features, similar in distribution to , with no acute osseous abnormality identified. If there is further clinical concern regarding the patient's shoulder or knee, MR imaging could be considered, if otherwise not contraindicated. Shoulder X-Ray 07/09/17 16:51 Impression: 1. There is no acute fracture identified. 2. 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 3. Features suggestive of a chronic rotator cuff tear with pronounced narrowing of the acromiohumeral distance. Right Knee (3 Views, at 4:56 PM): There is persistent severe patellofemoral joint space narrowing, and mild medial femoral-tibial compartment narrowing. There are periarticular degenerative spurs associated with the distal femur and the proximal tibia, as well as the posterior patella. There is a tiny suprapatellar joint effusion present. The bones are demineralized, however there is no acute fracture or dislocation. There is degenerative pinnacling of the tibial spines. There is no loose osteochondral body. There is a normal- variant fabella seen posterolaterally. Impression: Degenerative osteoarthritic features, similar in distribution to , with no acute osseous abnormality identified. If there is further clinical concern regarding the patient's shoulder or knee, MR imaging could be considered, if otherwise not contraindicated. - Data Points Medications Given: Discontinued Medications Acetaminophen (Tylenol) 1,000 mg PO EDNOW ONE Stop: 07/09/17 16:53 Last Admin: 07/09/17 17:11 Dose: 1,000 mg Diphtheria/Tetanus/Acell Pertussis (Boostrix) 0.5 ml IM .ONCE ONE Stop: 07/09/17 16:53 Last Admin: 07/09/17 17:13 Dose: 0.5 ml Departure - Departure Disposition: Home, Routine, Self-Care Clinical Impression: Multiple contusions Fall Qualifiers: Encounter type: initial encounter Qualified Code(s): W19.XXXA - Unspecified fall, initial encounter Condition: Good Instructions: Contusion in Adults (ED) Additional Instructions: 1. Please ice your urine knee and shoulder for the next 24-48 hours. 2. Anti-inflammatory pain medicine like Tylenol for pain control. 3. Follow up with her primary care doctor as needed. 4. Return emergency room if you have worsening symptoms questions or concerns. Referrals: Marc Matt MD [Primary Care Provider] - As per Instructions
[2017-07-09] MEDS ORDERED: TDAP ADULT 0.5 ML INJ (BOOSTRIX) IM ONE (16:52)
[2017-07-09] MEDS ORDERED: ACETAMINOPHEN 500 MG TAB PO ONE (16:52)
[2017-07-09] MEDS ORDERED: BACITRACIN OINTMENT 1 PACKET TP ONE (17:20)
[2017-07-09 18:22] VITALS: BP 102/76
== END 2017-07-09 18:22 | disposition home or self-care (01) ==
LOC: CED 16:38
DX: S80.01XA Contusion of right knee, initial encounter (principal); S40.011A Contusion of right shoulder, initial encounter; E11.9 Type 2 diabetes mellitus without complications; Z23 Encounter for immunization; Z87.891 Personal history of nicotine dependence; Z79.4 Long term (current) use of insulin; W01.0XXA Fall on same level from slipping, tripping and stumbling without subsequent striking against object, initial encounter
CPT/HCPCS: 73030-PO; 73562-PO

== ENCOUNTER → 2018-03-03 | Outpatient (CLI) | payer OTHER | LOC: CIMAGING 15:24 | PROVIDERS: ATTEND Internal Medicine | DX: M20.61 Acquired deformities of toe(s), unspecified, right foot (principal); M19.071 Primary osteoarthritis, right ankle and foot; I87.8 Other specified disorders of veins | CPT/HCPCS: 73660-PO ==